=== PATIENT | male | born 1955 | race Caucasian/White ===

== ENCOUNTER → 2020-02-21 | Outpatient (CLI) | payer BC ==
[~2020-02-21] MED LIST: ATOR40TA78 PO; TAMS-11 PO; atorvastatin PO
== END | disposition home or self-care (01) ==
LOC: STAR 07:24
PROVIDERS: ATTEND Urology
DX: Z01.812 Encounter for preprocedural laboratory examination (principal); Z20.828 Contact with and (suspected) exposure to other viral communicable diseases; C61 Malignant neoplasm of prostate
CPT/HCPCS: 87635; 93005

== ENCOUNTER 2020-02-26 09:55 | Inpatient (IN) | payer BC ==
[~2020-02-26] VITALS: Ht 175.3 cm; Wt 103.3 kg
[~2020-02-26 09:55] MED LIST changes: +BUPIVACAINE/PF 0.25% ONE; +EPINEPHRINE 1 MG/ML, 1ML ONE; +OPIUM/BELLADONNA SUPP.RECT 16.2-60 MG ONE
[2020-02-26] MEDS ORDERED: CHLORHEXIDINE 15 ML UDC ONE (10:21)
[2020-02-26] MEDS ORDERED: CHLORHEXIDINE 15 ML UDC MM ONE (10:30)
[2020-02-26] MEDS ORDERED: LACTATED RINGERS 1,000 ML IV SCH (10:30)
[2020-02-26] MEDS ORDERED: FENTANYL PF 250 MCG/5ML ONE (12:26)
[2020-02-26] MEDS ORDERED: MIDAZOLAM 1 MG/ML, 2ML ONE (12:26)
[2020-02-26] MEDS ORDERED: PROMETHAZINE 25 MG SUPP PR PRN (13:30)
[2020-02-26] MEDS ORDERED: ONDANSETRON 2MG/ML, 2ML IVPush PRN (13:30)
[2020-02-26] MEDS ORDERED: FENTANYL PF 100 MCG/2ML IV PRN (13:30)
[2020-02-26] MEDS ORDERED: PROMETHAZINE 25 MG/ML, 1ML IVPush PRN (13:30)
[2020-02-26] MEDS ORDERED: ACETAMINOPHEN 325 MG TABLET PO PRN (13:30)
[2020-02-26] MEDS ORDERED: OXYcodone 5 MG/5 ML ORAL.SOL UDC PO PRN (13:30)
[2020-02-26] MEDS ORDERED: METHOCARBAMOL 1,000 MG in DEXTROSE 5% 100 ML IV PRN (13:30)
[2020-02-26] MEDS ORDERED: hydrALAzine 20 MG/ML, 1ML IV PRN (13:30)
[2020-02-26] MEDS ORDERED: LABETALOL 5MG/ML, 20ML IV PRN (13:30)
[2020-02-26] MEDS ORDERED: LORazepam 2 MG/ML, 1ML IVPush PRN (13:30)
[2020-02-26] MEDS ORDERED: FENTANYL PF 100 MCG/2ML ONE ×5 (14:19→17:28)
[2020-02-26] MEDS ORDERED: PROPOFOL 10 MG/ML, 20ML ONE (16:38)
[2020-02-26] MEDS ORDERED: NEOSTIGMINE 1 MG/ML, 10ML ONE (16:38)
[2020-02-26] MEDS ORDERED: CEFAZOLIN 1,000 MG ONE ×3 (16:38)
[2020-02-26] MEDS ORDERED: ROCURONIUM 10MG/ML,5ML ONE (16:38)
[2020-02-26] MEDS ORDERED: GLYCOPYRROLATE 0.2MG/1ML, 5ML ONE (16:38)
[2020-02-26] MEDS ORDERED: DEXAMETHASONE 4 MG/ML, 1ML ONE (16:38)
[2020-02-26] MEDS ORDERED: SUCCINYLCHOLINE 20 MG/ML, 10ML ONE (16:38)
[2020-02-26] MEDS ORDERED: ONDANSETRON 2MG/ML, 2ML ONE (16:38)
[2020-02-26] MEDS ORDERED: SUGAMMADEX 200 MG/2 ML IVPush ONE (16:51)
[2020-02-26] MEDS ORDERED: OXYcodone 5 MG/5 ML ORAL.SOL UDC ONE (17:29)
[2020-02-26] MEDS ORDERED: HYDROmorphone 1 MG/ML, 1ML INJ ONE (18:14)
[2020-02-26] MEDS: HYDROmorphone 1 MG/ML, 1ML INJ IVPush PRN ×4 (18:19→18:54)
[2020-02-26] MEDS ORDERED: OXYcodone IR 5MG TABLET PO PRN (20:30)
[2020-02-26] MEDS ORDERED: OPIUM/BELLADONNA SUPP.RECT 16.2-60 MG PR PRN (20:30)
[2020-02-26] MEDS ORDERED: MORPHINE SULFATE 4 MG/ML, 1ML IV PRN (20:30)
[2020-02-26] MEDS ORDERED: ONDANSETRON 2MG/ML, 2ML IV PRN (20:30)
[2020-02-26] MEDS: SODIUM CHLORIDE 0.45% 1,000 ML IV SCH (20:59)
[2020-02-26] MEDS: ACETAMINOPHEN 500 MG TABLET PO SCH (21:04)
[2020-02-27 01:50] VITALS: BP 122/75
[2020-02-27] MEDS: ACETAMINOPHEN 500 MG TABLET PO SCH ×4 (02:48→22:31)
[2020-02-27] MEDS: SODIUM CHLORIDE 0.45% 1,000 ML IV SCH ×3 (04:51→20:17)
[2020-02-27 05:34] LABS: ANION GAP 8 mmol/L (5-15); CALCIUM 8.1 mg/dL (8.5-10.1); CHLORIDE 107 mmol/L (98-107)
[2020-02-27 05:35] LABS: CREATININE 0.88 mg/dL (0.7-1.3)
[2020-02-27 06:49] VITALS: BP 126/70
[2020-02-27] MEDS: ENOXAPARIN 40 MG/0.4 ML SQ SCH (09:25)
[2020-02-27 12:42] VITALS: BP 131/75
[2020-02-27 19:34] VITALS: BP 133/78
[2020-02-28 00:52] VITALS: BP 110/69
[2020-02-28] MEDS: ACETAMINOPHEN 500 MG TABLET PO SCH ×2 (04:24→08:17)
[2020-02-28] MEDS: SODIUM CHLORIDE 0.45% 1,000 ML IV SCH (04:25)
[2020-02-28 06:23] LABS: ANION GAP 3 mmol/L (5-15); CALCIUM 7.9 mg/dL (8.5-10.1); CHLORIDE 109 mmol/L (98-107)
[2020-02-28 06:24] LABS: CREATININE 0.65 mg/dL (0.7-1.3)
[2020-02-28 07:12] VITALS: BP 123/79
[2020-02-28] MEDS: ENOXAPARIN 40 MG/0.4 ML SQ SCH (08:17)
[2020-02-28] MEDS ORDERED: HYDR-3240 PO (08:45)
== END 2020-02-28 10:59 | disposition home or self-care (01) | DRG 708 ==
LOC: OUT 09:55 → 4NW 19:42 → DCLOUNGE 02-28 10:47
PROVIDERS: ADMIT Urology; ATTEND Urology
PROC: 8E0W4CZ Robotic Assisted Procedure of Trunk Region, Percutaneous Endoscopic Approach (ICD-10-PCS; 2020-02-26)
PROC: 0VT04ZZ Resection of Prostate, Percutaneous Endoscopic Approach (ICD-10-PCS; principal; 2020-02-26 12:00)
DX: C61 Malignant neoplasm of prostate (principal)
CPT/HCPCS: 36415; 80048; 85014; 85018; 86850; 86900; 88309; C1729; G0378; J0171; J0690; J1100; J1170; J1650; J2250; J2405; J2704; J2710; J3010; C1760; J0330; J7120

== ENCOUNTER → 2020-03-04 | Outpatient (CLI) | payer BC ==
[~2020-03-04] MED LIST changes: -BUPIVACAINE/PF 0.25% ONE; +CYSTO CONRAY II 250 ML VIAL UR ONE; -EPINEPHRINE 1 MG/ML, 1ML ONE; +HYDR-3240 PO; -OPIUM/BELLADONNA SUPP.RECT 16.2-60 MG ONE
== END | disposition home or self-care (01) ==
LOC: RAD 07:16
PROVIDERS: ATTEND Urology
DX: C61 Malignant neoplasm of prostate (principal)
CPT/HCPCS: 51600; 74430; Q9958